=== PATIENT | female | born 1960 | race Caucasian/White ===

== ENCOUNTER 2018-07-18 08:31 | Emergency (ER) | payer OTHER ==
[~2018-07-18] VITALS: Wt 67.0 kg
[2018-07-18 08:34] VITALS: BP 137/81; PULSE 68; RESP 18
[2018-07-18] MEDS ORDERED: METH500T PO (09:06)
[2018-07-18] MEDS ORDERED: IBUP-1542 PO (09:06)
[2018-07-18] MEDS ORDERED: CEPH-443 PO (09:06)
--- NOTE | 2018-07-18 09:09 | ERD ---
ER Documentation Chief Complaint Chief Complaint POSSIBLE INSECT BITES BACK, NECK PAIN HPI This is a 58-year-old female who woke this morning with some bites to her belt line on the right greater than left low back. There are bit itchy. She also complains of sleeping wrong and she has some left posterior cervical tenderness that is worse when she moves her head ROS All systems reviewed and are negative except as per history of present illness. Medications Home Meds Active Scripts Cephalexin* (Keflex*) 500 Mg Capsule, 500 MG PO BID WITH MEALS for 5 Days, CAP Prov:LEKKOS,APOSTOLOS A. DO 07/18/18 Methocarbamol* (Robaxin*) 500 Mg Tab, 500 MG PO Q8, #10 TAB Prov:LEKKOS,APOSTOLOS A. DO 07/18/18 Ibuprofen* (Motrin*) 600 Mg Tab, 600 MG PO Q8, #30 TAB Prov:LEKKOS,APOSTOLOS A. DO 07/18/18 FmHx Family History: No coronary disease Physical Exam Vitals Vital Signs Date Temp Pulse Resp B/P (MAP) Pulse Ox O2 O2 Flow FiO2 Time Delivery Rate 07/18/18 97.4 68 18 137/81 99 08:34 (99) Physical Exam Const: No acute distress Head: Atraumatic Eyes: Normal Conjunctiva ENT: Normal External Ears, Nose and Mouth. Neck: Full range of motion. No meningismus., Tender posterior left cervical musculature Resp: Clear to auscultation bilaterally Cardio: Regular rate and rhythm, no murmurs Abd: Soft, non tender, non distended. Normal bowel sounds Skin: 5-6 small bites to the posterior right flank that resemble mosquito bites, there is also 2 or 3 on the left side Back: No midline or flank tenderness Ext: No cyanosis, or edema Neur: Awake and alert Psych: Normal Mood and Affect Procedures/MDM Patient has some insect bites will cover with Keflex, she has a posterior neck strain will give some Robaxin and Motrin Departure Diagnosis: Primary Impression: Insect bites Encounter type: initial encounter Site of insect bite: lower back Qualified Codes: S30.860A - Insect bite (nonvenomous) of lower back and pelvis, initial encounter; W57.XXXA - Bitten or stung by nonvenomous insect and other nonvenomous arthropods, initial encounter Additional Impression: Neck strain Encounter type: initial encounter Qualified Codes: S16.1XXA - Strain of muscle, fascia and tendon at neck level, initial encounter Condition: Stable Patient Instructions: Neck Sprain/Strain, Insect Bite MYCHAL ZIMMERMAN DO July 18, 2018 09:09
== END 2018-07-18 10:40 | disposition home or self-care (01) ==
LOC: FTE 08:31
DX: S30.860A Insect bite (nonvenomous) of lower back and pelvis, initial encounter (principal); S16.1XXA Strain of muscle, fascia and tendon at neck level, initial encounter; W57.XXXA Bitten or stung by nonvenomous insect and other nonvenomous arthropods, initial encounter; Y92.9 Unspecified place or not applicable
CPT/HCPCS: 99283